=== PATIENT | female | born 1945 | race Caucasian/White ===

== ENCOUNTER → 2022-06-28 11:09 | Outpatient (BNVA) | payer MEDICARE, OTHER, SELFPAY | PROVIDERS: PCP Internal Medicine; Visit Provider Psychiatry & Neurology Psychiatry | DX: F34.1 Dysthymic disorder (principal); R41.3 Other amnesia; F10.91 Alcohol use, unspecified, in remission | CPT/HCPCS: 90833; 99212 ==

== ENCOUNTER → 2022-08-10 11:59 | Outpatient (BNVA) | payer MEDICARE, OTHER, SELFPAY | PROVIDERS: PCP Internal Medicine; Visit Provider Psychiatry & Neurology Psychiatry | DX: F10.91 Alcohol use, unspecified, in remission (principal); R41.3 Other amnesia; F34.1 Dysthymic disorder | CPT/HCPCS: 99212 ==

== ENCOUNTER → 2022-09-27 12:07 | Outpatient (BNVA) | payer MEDICARE, OTHER, SELFPAY | PROVIDERS: PCP Internal Medicine; Visit Provider Psychiatry & Neurology Psychiatry | DX: F10.91 Alcohol use, unspecified, in remission (principal); F34.1 Dysthymic disorder; R41.3 Other amnesia | CPT/HCPCS: 99212 ==

== ENCOUNTER 2023-03-12 14:13 | Outpatient (AMB) | payer MEDICARE, OTHER, SELFPAY ==
--- NOTE | 2023-03-12 14:27 | MHC.OFFVISPS ---
Intake Intake Visit Reasons: depression Medication List - Last Reconciled 03/12/23 by Jim Cerna MD atorvastatin 40 mg PO DAILY fluoxetine 20 mg PO DAILY metoprolol succinate ER 25 mg PO DAILY mirtazapine 15 mg PO BEDTIME rivaroxaban (Xarelto) 15 mg PO DAILY trazodone 50 - 100 mg (1 - 2 x 50 mg) PO BEDTIME 90 days HPI- Psychiatric Chief Complaint: depression HPI Narrative: The patient is seen in psychiatric follow-up. Patient is mood is generally okay she has periods of work problems with working attention and short-term memory. Executive functioning general function functional abilities remained generally intact. The patient complains of fatigue some depressive symptoms does remain sober along with her . Had a very difficult recent vacation with her in which there was illness. Patient feels somewhat discouraged somewhat demoralized. Had recent GI bleed while on vacation eventually needed to be hospitalized Past Psychiatric History: The patient has a long history of depression complicated by intermittent alcohol dependence with periods of sobriety Mental Status Exam Mental Status Exam Narrative: Mental Status Exam Narrative: Appearance: Casually dressed Behavior: Cooperative appropriate psychomotor: Within normal limits Speech: Normal volume and prosody Thought proccess logical and goal-directed Thought content: Future oriented no self-harming thoughts feeling more optimistic about the future Mood: anxious mild dysphoria Affect: Appropriate to mood SI:denies HI:denies VH/AH:none Delusions: None Insight/judgment: Good insight and judgment Memory/cog: slowed mentation mild st memory dyfx Assessment and Plan Assessment & Plan (1) Dysthymia: Status: Acute Code(s): F34.1 - Dysthymic disorder (2) Memory deficit: Status: Acute Code(s): R41.3 - Other amnesia (3) Alcohol use disorder in remission: Status: Acute Code(s): F10.91 - Alcohol use, unspecified, in remission Plan pt has generally been stable emotionally had gi bleed on vac required transfusion she would re-evaluate mental status when more medically stabilized B12 folate TSH previously unremarkable unsure of current hematocrit and reason for GI bleed patient had been on blood thinners fatigue and lethargy may certainly been from anemia will re-evaluate next visit Continue mirtazapine and Prozac consider cholinesterase inhibitor patient has been taking side 0 choline which was recommended previously for depression and cognitive impairment literature was reviewed and patient has been able to review material Counseling and coordination of Care Pt. Self Management counseling: Problem solving Medication management counseling: Effectiveness and Dosing range Details: I spent [37] minutes reviewing the record, seeing the patient and documenting in the medical record. Counseling provided to the patient/caregiver as outlined below. Addressed patient/caregiver concerns regarding current medication regime including effective adherence. Addressed patient/caregiver concerns regarding diagnosis and prognosis including accuracy of diagnosis, prognosis over time, impact of diagnosis. Addressed patient/caregiver concerns regarding impact of recent stressors. 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
== END 2023-03-12 14:45 | disposition home or self-care (01) ==
LOC: HO.HOP 14:13
PROVIDERS: PCP Internal Medicine; Visit Provider Psychiatry & Neurology Psychiatry
DX: F34.1 Dysthymic disorder (principal); R41.3 Other amnesia; F10.91 Alcohol use, unspecified, in remission
CPT/HCPCS: 90833; 99213

== ENCOUNTER → 2023-03-12 14:13 | Outpatient (BNVA) | payer MEDICARE, OTHER, SELFPAY | PROVIDERS: PCP Internal Medicine; Visit Provider Psychiatry & Neurology Psychiatry | DX: R41.3 Other amnesia (principal); F34.1 Dysthymic disorder; F10.91 Alcohol use, unspecified, in remission | CPT/HCPCS: 90833; 99212 ==

== ENCOUNTER 2023-06-13 14:39 | Outpatient (AMB) | payer MEDICARE, OTHER, SELFPAY ==
--- NOTE | 2023-06-13 13:56 | A.OFFPSYCH_ITS ---
Intake Intake Visit Reasons: depression Medication List - Last Reconciled 06/13/23 by Jim Cerna MD atorvastatin 40 mg PO DAILY fluoxetine 20 mg PO DAILY metoprolol succinate ER 25 mg PO DAILY mirtazapine 22.5 mg PO BEDTIME trazodone 50 - 100 mg (1 - 2 x 50 mg) PO BEDTIME 90 days HPI- Psychiatric Chief Complaint: depression HPI Narrative: Pt is a 78 yo female descirbes in depression worsening cognition but has felt dysphoric was recently severely anemic gi bleed not worked up as of now some of her slowed mentation depression fatigue may be in relationship to anemia Past Psychiatric History: The patient has a long history of depression complicated by intermittent alcohol dependence with periods of sobriety Mental Status Exam Mental Status Exam Narrative: Mental Status Exam Narrative: Appearance: Casually dressed Behavior: Cooperative appropriate psychomotor: Within normal limits Speech: Normal volume and prosody Thought proccess logical and goal-directed Thought content: Focused on difficulty with short-term memory fatigue Mood: anxious dysphoria Affect: Appropriate to mood SI:denies HI:denies VH/AH:none Delusions: None Insight/judgment: Good insight and judgment Memory/cog: slowed mentation mild st memory dyfx Assessment and Plan Assessment & Plan (1) Dysthymia: Status: Acute Code(s): F34.1 - Dysthymic disorder (2) Mild cognitive impairment with memory loss: Status: Acute Code(s): G31.84 - Mild cognitive impairment of uncertain or unknown etiology (3) Alcohol use disorder in remission: Status: Acute Code(s): F10.91 - Alcohol use, unspecified, in remission Plan The patient has been increasingly concerned about her health in mental in cognitive health. She had another recent GI bleed with hypotension had been taken off of blood thinners and had a watch min procedure because of atrial fibrillation. Patient has been increasingly blue she can maintain her normal functioning generally speaking but does find that although she can do normal tasks shopping cooking driving should she has some mild word-finding at times and has difficulty speaking up in AA meetings which is unusual for her. Valentin cognitive assessment showed a 26 discussed option to start Namenda patient just had a GI bleed was anemic will follow-up in about 6 weeks increase mirtazapine 22.5 mg for 2 weeks if no improvement 30 mg patient: Between if feeling worse. 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 Counseling provided to the patient/caregiver as outlined below. Addressed patient/caregiver concerns regarding current medication regime including effective adherence. Addressed patient/caregiver concerns regarding diagnosis and prognosis including accuracy of diagnosis, prognosis over time, impact of diagnosis. Addressed patient/caregiver concerns regarding impact of recent stressors. 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
== END 2023-06-13 14:40 | disposition home or self-care (01) ==
LOC: HO.HOP 14:39
PROVIDERS: PCP Internal Medicine; Visit Provider Psychiatry & Neurology Psychiatry
DX: F34.1 Dysthymic disorder (principal); G31.84 Mild cognitive impairment of uncertain or unknown etiology; F10.91 Alcohol use, unspecified, in remission
CPT/HCPCS: 90833; 99213

== ENCOUNTER → 2023-06-13 14:39 | Outpatient (BNVA) | payer MEDICARE, OTHER, SELFPAY | PROVIDERS: PCP Internal Medicine; Visit Provider Psychiatry & Neurology Psychiatry | DX: F34.1 Dysthymic disorder (principal); F10.91 Alcohol use, unspecified, in remission; G31.84 Mild cognitive impairment of uncertain or unknown etiology | CPT/HCPCS: 90833; 99212 ==

== ENCOUNTER 2023-07-25 15:07 | Outpatient (AMB) | payer MEDICARE, OTHER, SELFPAY ==
--- NOTE | 2023-07-25 12:15 | A.OFFPSYCH_ITS ---
Intake Intake Visit Reasons: depression HPI- Psychiatric Chief Complaint: depression HPI Narrative: Pt generally has been ok less depressed no cognitive changes they still have not figured out why the patient became in endoscopy and colonoscopy did not show any clear reason for anemia. Patient remains on side a choline Prozac mirtazapine remain sober Past Psychiatric History: The patient has a long history of depression complicated by intermittent alcohol dependence with periods of sobriety Mental Status Exam Mental Status Exam Narrative: Mental Status Exam Narrative: Appearance: Casually dressed Behavior: Cooperative appropriate psychomotor: Within normal limits Speech: Normal volume and prosody Thought proccess logical and goal-directed Thought content: Worries about cognition and medical condition Mood: anxious dysphoria Affect: Appropriate to mood SI:denies HI:denies VH/AH:none Delusions: None Insight/judgment: Good insight and judgment Memory/cog: slowed mentation mild st memory dyfx Assessment and Plan Assessment & Plan (1) Dysthymia: Status: Acute Code(s): F34.1 - Dysthymic disorder (2) Mild cognitive impairment with memory loss: Status: Acute Code(s): G31.84 - Mild cognitive impairment of uncertain or unknown etiology (3) Alcohol use disorder in remission: Status: Acute Code(s): F10.91 - Alcohol use, unspecified, in remission Plan Trazodone increased to 150 mg as needed continue mirtazapine 22.5 mg fluoxetine 20 mg daily. Consider Aricept/Namenda patient remains sober urged regular sleep Medications: Changed From trazodone 50 - 100 mg (1 - 2 x 50 mg) PO BEDTIME 90 days 180 tabs 1RF To trazodone 50 - 150 mg (1 - 3 x 50 mg) PO BEDTIME 180 tabs 1RF 90 days Refilled mirtazapine 22.5 mg (1.5 x 15 mg) PO BEDTIME 135 tabs 1RF 90 days fluoxetine 20 mg PO DAILY 90 caps 1RF Counseling and coordination of Care Pt. Self Management counseling: Cognitive restructuring Medication management counseling: Effectiveness, Side effects and Dosing range Diagnosis and Prognosis Counseling: Impact of diagnosis on life functions and Adequacy of current interventions Details: I spent [35] minutes reviewing the record, seeing the patient and documenting in the medical record. Counseling provided to the patient/caregiver as outlined below. Addressed patient/caregiver concerns regarding current medication regime including effective adherence. Addressed patient/caregiver concerns regarding diagnosis and prognosis including accuracy of diagnosis, prognosis over time, impact of diagnosis. Addressed patient/caregiver concerns regarding impact of recent stressors. 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
== END 2023-07-25 15:08 | disposition home or self-care (01) ==
LOC: HO.HOP 15:07
PROVIDERS: PCP Internal Medicine; Visit Provider Psychiatry & Neurology Psychiatry
DX: F34.1 Dysthymic disorder (principal); G31.84 Mild cognitive impairment of uncertain or unknown etiology; F10.91 Alcohol use, unspecified, in remission
CPT/HCPCS: 99214

== ENCOUNTER → 2023-07-25 15:07 | Outpatient (BNVA) | payer MEDICARE, OTHER, SELFPAY | PROVIDERS: PCP Internal Medicine; Visit Provider Psychiatry & Neurology Psychiatry | DX: F34.1 Dysthymic disorder (principal); G31.84 Mild cognitive impairment of uncertain or unknown etiology; F10.91 Alcohol use, unspecified, in remission | CPT/HCPCS: 99212 ==

== ENCOUNTER 2023-10-22 11:45 | Outpatient (AMB) | payer MEDICARE, OTHER, SELFPAY ==
--- NOTE | 2023-10-22 13:14 | A.OFFPSYCH_ITS ---
Intake Intake Visit Reasons: depression HPI- Psychiatric Chief Complaint: depression HPI Narrative: Patient seen in psychiatric follow-up. The patient had recently been hospitalized for what seems to be a syncopal episode meds at discharge Patient has been on aspirin atorvastatin vitamin-D B12 fluoxetine 20 metoprolol 25 Mirtazapine patient has been taking citocholine . History of atrial fibrillation cardiomyopathy history of alcoholism sober x2 years. Patient's mood has been melancholic no SI she does also complain shortness breath walking up stairs or walking relatively short distances. It is not clear whether this is cardiac or pulmonary. Was not thought to be a seizure See PHQ-9 patient dysphoric worried about medical issues and slowly worsening cognitive functioning. Memory impairment from what she would done the day before occasionally when driving has lost track of direction but then is able to reorient herself Past Psychiatric History: The patient has a long history of depression complicated by intermittent alcohol dependence with periods of sobriety Mental Status Exam Mental Status Exam Narrative: Mental Status Exam Narrative: Appearance: Casually dressed Behavior: Cooperative appropriate psychomotor: Within normal limits Speech: Normal volume and prosody Thought proccess logical and goal-directed Thought content: Worries about cognition and medical condition preoccupied ruminating Mood: anxious dysphoria Affect: Appropriate to mood SI:denies HI:denies VH/AH:none Delusions: None Insight/judgment: Good insight and judgment Memory/cog: slowed mentation mild st memory dyfx knows year month place day diagnoses medication Results Reviewed Results Reviewed: [facility] recent admission status post syncope Assessment and Plan Assessment & Plan (1) Mild cognitive impairment with memory loss: Status: Acute Code(s): G31.84 - Mild cognitive impairment of uncertain or unknown etiology (2) Alcohol use disorder in remission: Status: Acute Code(s): F10.91 - Alcohol use, unspecified, in remission (3) Syncope and collapse: Status: Acute Code(s): R55 - Syncope and collapse (4) Major depression, recurrent, chronic: Status: Acute Code(s): F33.9 - Major depressive disorder, recurrent, unspecified Plan Neurology referral stop trazodone in case contributing to any hypotensive episode would most likely benefit from Exelon/Namenda has been sober x2 years vascular changes noted on past MRI past [place] 22 Question would patient benefit from level of amyloid/tau protein ? leqembi treatment if alz Urged patient to speak with her PCP regarding clarification reasons for shortness breath question COPD question arrhythmia related question what was cause of recent syncope no orthostasis noted Records reviewed from [facility] Medications: Discontinued trazodone Discontinued Reason: Doctor's Order 50 - 150 mg (1 - 3 x 50 mg) PO BEDTIME 90 days 180 tabs 1RF Orders: Orders EEG ambulatory 10/22/23 G31.84 - Mild cognitive impairment of uncertain or unknown etiology, R55 - Syncope and collapse Referrals Neurology Referral G31.84 - Mild cognitive impairment of uncertain or unknown etiology, R55 - Syncope and collapse Counseling and coordination of Care Diagnosis and Prognosis Counseling: Adequacy of current interventions Details-Diagnosis/Prognosis counseling: Consider TMS after neuro workup question why has not red blood count normalized Details: I spent [38] minutes reviewing the record, seeing the patient and documenting in the medical record. Counseling provided to the patient/caregiver as outlined below. Addressed patient/caregiver concerns regarding current medication regime including effective adherence. Addressed patient/caregiver concerns regarding diagnosis and prognosis including accuracy of diagnosis, prognosis over time, impact of diagnosis. Addressed patient/caregiver concerns regarding impact of recent stressors. 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
== END 2023-10-22 18:18 | disposition home or self-care (01) ==
LOC: HO.HOP 11:45
PROVIDERS: PCP Internal Medicine; Visit Provider Psychiatry & Neurology Psychiatry
DX: G31.84 Mild cognitive impairment of uncertain or unknown etiology (principal); F10.91 Alcohol use, unspecified, in remission; R55 Syncope and collapse; F33.9 Major depressive disorder, recurrent, unspecified
CPT/HCPCS: 90833; 99213

== ENCOUNTER → 2023-10-22 11:45 | Outpatient (BNVA) | payer MEDICARE, OTHER, SELFPAY | PROVIDERS: PCP Internal Medicine; Visit Provider Psychiatry & Neurology Psychiatry | DX: G31.84 Mild cognitive impairment of uncertain or unknown etiology (principal); F10.91 Alcohol use, unspecified, in remission; F33.9 Major depressive disorder, recurrent, unspecified; R55 Syncope and collapse | CPT/HCPCS: 99212 ==

== ENCOUNTER 2023-12-31 13:45 | Outpatient (AMB) | payer MEDICARE, OTHER, SELFPAY ==
--- NOTE | 2023-12-31 13:53 | A.OFFPSYCH_ITS ---
Intake Intake Visit Reasons: Depression Medication List - Last Reconciled 12/31/23 by Jim Cerna MD atorvastatin 40 mg PO DAILY fluoxetine 20 mg PO DAILY metoprolol succinate ER 25 mg PO DAILY mirtazapine 22.5 mg (1.5 x 15 mg) PO BEDTIME 90 days HPI- Psychiatric Chief Complaint: Depression HPI Narrative: Pt feeling much improved off trazadone was causing sedation confusion during the day now alert energetic . Cognitive issues much decreased memory improved. Mood markedly improved. Remains sober. Past Psychiatric History: The patient has a long history of depression complicated by intermittent alcohol dependence with periods of sobriety Mental Status Exam Mental Status Exam Narrative: Mental Status Exam Narrative: Appearance: Casually dressed Behavior: Cooperative appropriate psychomotor: Within normal limits Speech: Normal volume and prosody Thought proccess logical and goal-directed Thought content: Much more positive in thought feeling much better less impaired Mood: Euthymic Affect: Appropriate SI:denies HI:denies VH/AH:none Delusions: None Insight/judgment: Good insight and judgment Memory/cog: Much more alert cognition much improved quicker Assessment and Plan Assessment & Plan (1) Major depression, recurrent, chronic: Status: Acute Code(s): F33.9 - Major depressive disorder, recurrent, unspecified (2) Mild cognitive impairment with memory loss: Status: Acute Code(s): G31.84 - Mild cognitive impairment of uncertain or unknown etiology (3) Alcohol use disorder in remission: Status: Acute Code(s): F10.91 - Alcohol use, unspecified, in remission Plan Continue current treatment plan off trazodone continue Prozac mirtazapine side choline L methyl folate Monitor cognition patient an upcoming neurology consult Medications: New levomefolate calcium 15 mg PO DAILY 30 tabs 0RF Refilled mirtazapine 22.5 mg (1.5 x 15 mg) PO BEDTIME 135 tabs 1RF 90 days fluoxetine 20 mg PO DAILY 90 caps 1RF Counseling and coordination of Care Details: I spent [] minutes reviewing the record, seeing the patient and documenting in the medical record. Counseling provided to the patient/caregiver as outlined below. Addressed patient/caregiver concerns regarding current medication regime including effective adherence. Addressed patient/caregiver concerns regarding diagnosis and prognosis including accuracy of diagnosis, prognosis over time, impact of diagnosis. Addressed patient/caregiver concerns regarding impact of recent stressors. 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
== END 2023-12-31 14:11 | disposition home or self-care (01) ==
LOC: HO.HOP 13:45
PROVIDERS: PCP Internal Medicine; Visit Provider Psychiatry & Neurology Psychiatry
DX: F33.9 Major depressive disorder, recurrent, unspecified (principal); G31.84 Mild cognitive impairment of uncertain or unknown etiology; F10.91 Alcohol use, unspecified, in remission
CPT/HCPCS: 99214

== ENCOUNTER → 2023-12-31 13:45 | Outpatient (BNVA) | payer MEDICARE, OTHER, SELFPAY | PROVIDERS: PCP Internal Medicine; Visit Provider Psychiatry & Neurology Psychiatry | DX: F33.9 Major depressive disorder, recurrent, unspecified (principal); G31.84 Mild cognitive impairment of uncertain or unknown etiology; F10.91 Alcohol use, unspecified, in remission; Z79.899 Other long term (current) drug therapy | CPT/HCPCS: 99212 ==

== ENCOUNTER 2024-05-26 14:31 | Outpatient (AMB) | payer MEDICARE, OTHER, SELFPAY ==
--- NOTE | 2024-05-26 14:58 | A.OFFPSYCH_ITS ---
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 Past Psychiatric History: The patient has a long history of depression complicated by intermittent alcohol dependence with periods of sobriety Mental Status Exam Mental Status Exam Narrative: Mental Status Exam Narrative: Appearance: Casually dressed Behavior: Cooperative appropriate psychomotor: Within normal limits Speech: Normal volume and prosody Thought proccess logical and goal-directed Thought content: Much more positive in thought feeling much better less impaired Mood: Euthymic Affect: Appropriate SI:denies HI:denies VH/AH:none Delusions: None Insight/judgment: Good insight and judgment Memory/cog: Much more alert cognition much improved quicker Assessment and Plan Assessment & Plan (1) Alcohol use disorder in remission: Status: Acute Code(s): F10.91 - Alcohol use, unspecified, in remission (2) Major depression, recurrent, chronic: Status: Acute Code(s): F33.9 - Major depressive disorder, recurrent, unspecified Plan Patient has done well on a combination of mirtazapine and fluoxetine no new medical problems cognitively has strongly regain much function improved over the past few months after hematocrit increased and trazodone was discontinued which may have been contributing to cloudiness Medications: Refilled fluoxetine 20 mg PO DAILY 90 caps 1RF mirtazapine 22.5 mg (1.5 x 15 mg) PO BEDTIME 135 tabs 1RF 90 days Counseling and coordination of Care Details: I spent [] minutes reviewing the record, seeing the patient and documenting in the medical record. Counseling provided to the patient/caregiver as outlined below. Addressed patient/caregiver concerns regarding current medication regime including effective adherence. Addressed patient/caregiver concerns regarding diagnosis and prognosis including accuracy of diagnosis, prognosis over time, impact of diagnosis. Addressed patient/caregiver concerns regarding impact of recent stressors. 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
== END 2024-05-26 14:35 | disposition home or self-care (01) ==
PROVIDERS: PCP Internal Medicine; Visit Provider Psychiatry & Neurology Psychiatry
DX: F10.91 Alcohol use, unspecified, in remission (principal); F33.9 Major depressive disorder, recurrent, unspecified
CPT/HCPCS: 90833; 99213

== ENCOUNTER → 2024-05-26 14:31 | Outpatient (BNVA) | payer MEDICARE, OTHER, SELFPAY | PROVIDERS: PCP Internal Medicine; Visit Provider Psychiatry & Neurology Psychiatry | DX: F10.91 Alcohol use, unspecified, in remission (principal); F33.9 Major depressive disorder, recurrent, unspecified; Z71.89 Other specified counseling | CPT/HCPCS: 99212 ==

== ENCOUNTER 2024-09-08 15:38 | Outpatient (AMB) | payer MEDICARE, OTHER, SELFPAY ==
--- NOTE | 2024-09-08 15:49 | MHC.OFFVISPS ---
Intake Intake Visit Reasons: depression Medication List - Last Reconciled 09/08/24 by Jim Cerna MD atorvastatin 40 mg PO DAILY fluoxetine 20 mg PO DAILY levomefolate calcium 15 mg PO DAILY metoprolol succinate ER 25 mg PO DAILY mirtazapine 22.5 mg (1.5 x 15 mg) PO BEDTIME 90 days pantoprazole mg PO HPI- Psychiatric Chief Complaint: depression HPI Narrative: Pt seen in f/u mood flat sober 3 1/2 yrs continues to generally be doing well. Cognitively intact. Her remains sober. Patient continues on fluoxetine mirtazapine citocholine generally doing well. Future oriented no complaints of side effects Past Psychiatric History: The patient has a long history of depression complicated by intermittent alcohol dependence with periods of sobriety Mental Status Exam Mental Status Exam Narrative: Mental Status Exam Narrative: Appearance: Casually dressed Behavior: Cooperative appropriate psychomotor: Within normal limits Speech: Normal volume and prosody Thought proccess logical and goal-directed Thought content: Much more positive in thought feeling much better less impaired Mood: Euthymic Affect: Appropriate SI:denies HI:denies VH/AH:none Delusions: None Insight/judgment: Good insight and judgment Memory/cog: Much more alert cognition much improved quicker Patient Appearance: Well Grooomed Assessment and Plan Assessment & Plan (1) Dysthymia: Status: Acute Code(s): F34.1 - Dysthymic disorder (2) Alcohol use disorder in remission: Status: Acute Code(s): F10.91 - Alcohol use, unspecified, in remission Plan Continue fluoxetine mirtazapine. Patient stable no thoughts of self-harm has been sober Medications: Refilled fluoxetine 20 mg PO DAILY 90 caps 1RF mirtazapine 22.5 mg (1.5 x 15 mg) PO BEDTIME 135 tabs 1RF 90 days Counseling and coordination of Care Diagnosis and Prognosis Counseling: Prognosis over time and Adequacy of current interventions Details: I spent [30] minutes reviewing the record, seeing the patient and documenting in the medical record. Counseling provided to the patient/caregiver as outlined below. Addressed patient/caregiver concerns regarding current medication regime including effective adherence. Addressed patient/caregiver concerns regarding diagnosis and prognosis including accuracy of diagnosis, prognosis over time, impact of diagnosis. Addressed patient/caregiver concerns regarding impact of recent stressors. 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
--- OUTSIDE RECORDS SUMMARY | 2024-09-08 16:14 | XMS_ITS | Clinical Summary ---
Author Organization [address] [place] [address] [place] [id number] Phone Care Team Providers Care Museum Technician Name Role Phone Wilfredo Estrada NP Primary Care Provider [phone] Medications pantoprazole (PROTONIX) 40 mg EC tabletIndicatio ns:GERD (gastroesophage al reflux disease) TAKE 1 TABLET BY MOUTH TWICE A DAY DIRECTED 180 tablet 1 07/21/2024 Active Encounters Date Type Department Care Team Description 09/01/2024 6:20 PM EST Ancillary Procedure [facility] [address] [facility] [address] [place] [address] 08/04/2024 3:20 PM EST Ancillary Procedure [facility] [address] [facility] [address] [place] [address] 07/15/2024 Telephone [facility] [address] [facility] [address] [place] [address] Rick Degroot MD from Last 3 Months Medical History Medical History Date Comments Family history of cardiovascular disease DX:Family history of cardiovascular disease Essential hypertension DX:Essent ial hypertension Hyperlipidemia DX:Hyperlipidemi a Alcohol abuse DX:Alcohol abuse Chronic kidney disease, stag e 3 ([facility]) DX:Chronic kidney disease, s tage 3 ([facility]) Esophagitis, reflux DX:Esophagit is, reflux Insomnia DX:Insomnia Major depression in partial remission ([facility]) DX:Major depression in parti al remission ([facility]) GI bleed DX:GI bleed Anemia DX:Anemia Depression DX:Depression Syncope DX:Syncope Dyspnea on exertion DX:Dyspnea o n exertion HTN (hypertension) DX:HTN (hyper tension) GERD (gastroesophageal reflux disease) DX:GERD (gastroesophageal reflux disease) Iron deficiency anemia DX:Iron d eficiency anemia Social History Tobacco Use Types Packs/Day Years Used Date Smoking Tobacco: Former Smokeless Tobacco: Never Alcohol Use Standard Drinks/Week Comments Not Currently 0 (1 standard drink = 0.6 oz pur e alcohol) Comments Unknown Sex and Gender Information Value Date Recorded Sex Assigned at Not on file Legal Sex Female 10:59 PM EST Gender Identity Not on file Sexual Orientation Not on file Obstetrics History Last Filed Vital Signs Vital Sign Reading Time Taken Comments Blood Pressure 138/80 12/16/2023 1:52 PM EDT Pulse 73 12/16/2023 1:52 PM EDT Temperature - - Respiratory Rate - - Oxygen Saturation - - Inhaled Oxygen Concentration - - Weight 65.8 kg (145 lb) 12/16/2023 1:52 PM EDT Height 162.6 cm (5' 4 ) 12/16/2023 1:52 PM EDT Body Mass Index 24.89 12/16/2023 1:52 PM EDT Plan of Treatment Health Maintenance Due Date Last Done Comments Pneumococcal Vaccine: 50+ Years (1 of 1 - PCV) 1995 Zoster Vaccines (2 of 2) 06/23/2018 04/28/2018 Cholesterol Screening (Lipid Panel) 07/01/2022 Depression Screening 07/01/2022 Falls Risk Assessment 07/01/2022 Hepatitis C Screening 07/01/2022 Medicare Annual Wellness Visit 07/01/2022 Osteoporosis Screening (Bone Density Screening) 07/01/2022 Social Influencers of Health Screening 07/01/2022 Hypertension/CHF/CAD Annual BMP Blood Test 07/07/2022 DTaP,Tdap,and Td Vaccines (2 - Td or Tdap) 10/01/2023 09/03/2023 COVID-19 Vaccine Completed 04/17/2024, 08/2022, 05/09/2021, Additional history exists Influenza Vaccine Completed 04/17/2024, , 05/24/2022, Additional history exists RSV Immunization Patients 60+ Years Old Completed 04/22/2024 HIB Vaccines Aged Out No longer eligi ble based on patient's age to complete this topic HPV Vaccines Aged Out No longer eligi ble based on patient's age to complete this topic Hepatitis A Vaccines Aged Out No long er eligible based on patient's age to complete this topic Hepatitis B Vaccines Aged Out No long er eligible based on patient's age to complete this topic IPV Vaccines Aged Out No longer eligi ble based on patient's age to complete this topic MMR Vaccines Aged Out No longer eligi ble based on patient's age to complete this topic Meningococcal ACWY Vaccine Aged Out N o longer eligible based on patient's age to complete this topic Meningococcal B Vacine Aged Out No lo nger eligible based on patient's age to complete this topic RSV Immunization Patients Under 20 months Aged Out No longer eligible based on patient's age to complete this topic Varicella Vaccines Aged Out No longer eligible based on patient's age to complete this topic Medical Devices Implanted Type Area Cotton Tier Device Identifier Shelf Expiration Date Model / Serial / Lot Bsci-Crm [id number] Implanted:02/2024 (Quantity not on file) Cardiac Loop Recorder [employer] CARD RHYTHM MGMT M301 / [id number] / Procedures Procedure Name Priority Date/Time Associated Diagnosis Comments CARDIAC DEVICE CHECK- REMOTE- MURJ Routine 09/01/2024 6:19 PM EST CARDIAC DEVICE CHECK- REMOTE- MURJ Routine 08/04/2024 3:16 PM EST from Last 3 Months Results * Cardiac device check - Remote- MURJ (09/01/2024 6:19 PM EST) Only the most recent of2 resultswithin the time period is included. Date Time Interrogation Session [id number] CV DEVICE CHECK Type Interrogation Session Remote Scheduled CV DEVICE CHECK Implantable Pulse Generator Cotton Tier BSX CV DEVICE CHECK Implantable Pulse Generator Type ILR CV DEVICE CHECK Implantable Pulse Generator Model M301 CV DEVICE CHECK Implantable Pulse Generator Serial Number [id number] CV DEVICE CHECK Implantable Pulse Generator Implant Date [id number] CV DEVICE CHECK Battery Status Beginning of Service CV DEVICE CHECK Date of Service 2024-09-04 CV DEVICE CHECK Anatomical Region Laterality Modality Device Interroga tion 08/24/2024 12:1 4 AM EST Impressions 09/01/2024 12:59 PM EST Normal Remote: No Events * This is a normal remote diagnostic device check * Alerts or events: None * Battery data was reviewed * Battery status: [place], [place] * Presenting rhythm: S-ECG suggestive of AF with slow ventricular response * Heart Rate Histograms reviewed Narrative Procedure Note Hoa Shearer MD - 09/01/2024 IMPRESSION: Normal Remote: No Events * This is a normal remote diagnostic device check * Alerts or events: None * Battery data was reviewed * Battery status: [place], [place] * Presenting rhythm: S-ECG suggestive of AF with slow ventricularresponse * Heart Rate Histograms reviewed us Hoa Shearer MD CV IMPLANTABLE CARDIAC DEV ICE PROCEDURES Final Result from Last 3 Months Insurance MEDICARE [facility] Advance Directives Documents on File Type Date Recorded Patient Curtain Cutter Expl [facility] Health Care Decision (hx) 09/07/2023 CALVIN SMITH DIRECTIVE Care Teams Museum Technician Relationship Specialty Start Date End Date Wilfredo Estrada NP [facility] [address] [place] [address] PCP - General 06/19/23
--- OUTSIDE RECORDS SUMMARY | 2024-09-08 16:14 | XMS_ITS | Encounter Summary ---
Author Organization [facility] Address [address] [place] [address] Care Team Providers Care Shoe Singer Name Role Phone SeanWilfredo cardenas NASIR Primary Care Provider [phone] Encounter Details Date Type Department Care Team (Late st Contact Info) Description 09/01/2024 6:20 PM EST Ancillary Procedure [facility] - [address] [facility] [address] [place] [address] Social History Tobacco Use Types Packs/Day Years Used Date Smoking Tobacco: Former Smokeless Tobacco: Never Alcohol Use Standard Drinks/Week Comments Not Currently 0 (1 standard drink = 0.6 oz pur e alcohol) Comments Unknown Sex and Gender Information Value Date Recorded Sex Assigned at Not on file Legal Sex Female 10:59 PM EST Gender Identity Not on file Sexual Orientation Not on file documented as of this encounter Plan of Treatment Not on file documented as of this encounter Procedures Procedure Name Priority Date/Time Associated Diagnosis Comments CARDIAC DEVICE CHECK- REMOTE- MURJ Routine 09/01/2024 6:19 PM EST documented in this encounter Results * Cardiac device check - Remote- MURJ (09/01/2024 6:19 PM EST) Date Time Interrogation Session [id number] CV DEVICE CHECK Type Interrogation Session Remote Scheduled CV DEVICE CHECK Implantable Pulse Generator Dental Resident BSX CV DEVICE CHECK Implantable Pulse Generator Type ILR CV DEVICE CHECK Implantable Pulse Generator Model M301 CV DEVICE CHECK Implantable Pulse Generator Serial Number [id number] CV DEVICE CHECK Implantable Pulse Generator Implant Date [id number] CV DEVICE CHECK Battery Status Beginning of [...] slow ventricularresponse * Heart Rate Histograms reviewed Hoa Shearer MD CV IMPLANTABLE CARDIAC DEV ICE PROCEDURES Final Result documented in this encounter Visit Diagnoses Not on filedocumented in this encounter Care Teams Shoe Singer Relationship Specialty Start Date End Date Wilfredo Estrada NP [facility] [address] [place] [address] PCP - General 06/19/23 documented as of this encounter
== END 2024-09-08 16:04 | disposition home or self-care (01) ==
LOC: HO.HOP 15:38
PROVIDERS: PCP Internal Medicine; Visit Provider Psychiatry & Neurology Psychiatry
DX: F34.1 Dysthymic disorder (principal); F10.91 Alcohol use, unspecified, in remission
CPT/HCPCS: 99214

== ENCOUNTER → 2024-09-08 15:38 | Outpatient (BNVA) | payer MEDICARE, OTHER, SELFPAY | PROVIDERS: PCP Internal Medicine; Visit Provider Psychiatry & Neurology Psychiatry | DX: F34.1 Dysthymic disorder (principal); F10.91 Alcohol use, unspecified, in remission | CPT/HCPCS: 99212 ==

== ENCOUNTER 2025-03-11 13:15 | Outpatient (AMB) | payer MEDICARE, OTHER, SELFPAY ==
--- NOTE | 2025-03-11 11:44 | MHC.OFFVISPS ---
Intake Intake Visit Reasons: depression Allergies amlodipine (From [facility]) Adverse Reaction (Verified 03/11/25 11:42) Swelling trazodone (From [facility]) Adverse Reaction (Verified 03/11/25 11:44) Confusion Medication List - Last Reconciled 03/11/25 by Jim Cerna MD atorvastatin 40 mg PO DAILY fluoxetine 20 mg PO DAILY levomefolate calcium 15 mg PO DAILY metoprolol succinate ER 25 mg PO DAILY mirtazapine 22.5 mg (1.5 x 15 mg) PO BEDTIME 90 days pantoprazole mg PO HPI- Psychiatric Chief Complaint: depression HPI Narrative: Pt seen in f/u mood chapa generally doing okay somewhat situationally down in relationship been somewhat down has felt estranged from son and has been dealing with chronic pain bursitis. Taking 15 l methyl folate taking citocholine was taken by surprise with issues related to her son who had been living with her previously.. Patient remains sober Past Psychiatric History: The patient has a long history of depression complicated by intermittent alcohol dependence with periods of sobriety Mental Status Exam Mental Status Exam Narrative: Mental Status Exam Narrative: Appearance: Casually dressed Behavior: Cooperative appropriate psychomotor: Within normal limits Speech: Normal volume and prosody Thought proccess logical and goal-directed Thought content: Somewhat preoccupied with issues related to her son and chronic dealing with chronic pain Mood: Depressive ruminating Affect: Appropriate to mood constricted SI:denies HI:denies VH/AH:none Delusions: None Insight/judgment: Good insight and judgment Memory/cog: Much more alert cognition intact Patient Appearance: Well Grooomed Assessment and Plan Assessment & Plan (1) Dysthymia: Status: Acute Code(s): F34.1 - Dysthymic disorder Plan Continue mirtazapine and fluoxetine. Discussed possibility of regular psychotherapy patient felt she can manage current situation and feels supported by friends and family Medications: Refilled mirtazapine 22.5 mg (1.5 x 15 mg) PO BEDTIME 135 tabs 1RF 90 days fluoxetine 20 mg PO DAILY 90 caps 1RF Counseling and coordination of Care Details-Self Mgmt counseling: Issues related to current family discord and internal will upset Medication management counseling: Effectiveness and Side effects Diagnosis and Prognosis Counseling: Adequacy of current interventions Details: I spent [39] minutes reviewing the record, seeing the patient and documenting in the medical record. Counseling provided to the patient/caregiver as outlined below. Addressed patient/caregiver concerns regarding current medication regime including effective adherence. Addressed patient/caregiver concerns regarding diagnosis and prognosis including accuracy of diagnosis, prognosis over time, impact of diagnosis. Addressed patient/caregiver concerns regarding impact of recent stressors. 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
--- OUTSIDE RECORDS SUMMARY | 2025-03-11 14:08 | XMS_ITS | Clinical Summary ---
Author Organization [address] [place] [address] [place] [phone] Phone Care Team Providers Care Lathe Operator Contact Lens Name Role Phone Wilfredo Estrada NP Primary Care Provider [phone] Allergies Active Allergy Reactions Criticality Noted Date Comments Duloxetine Rash 02/10/2025 Trazodone 02/10/2025 Passed out Medications furosemide (LASIX) 20 mg tablet Take 1 tablet (20 mg total) by mouth 1 (one) time each day. 30 each 2 01/16/20 25 Active Additional Information Patient taking differently:20 mg oralAs needed, Reported on 02/10/2025 atorvastatin (LIPITOR) 40 mg tablet Take 1 tablet (40 mg total) by mouth at bedtime. Active mirtazapine (REMERON) 15 mg tablet Take 1.5 tablets (22.5 mg total) by mouth at bedtime. Active aspirin 81 mg EC tablet Take 1 tablet (81 mg total) by mouth 1 (one) time each day. 02/11/20 25 026 Active FLUoxetine (PROzac) 20 mg capsule Take 1 capsule (20 mg total) by mouth 1 (one) time each day. Active metoprolol succinate (TOPROL-XL) 25 mg 24 hr tablet TAKE 0.5 TABLETS BY MOUTH 1 TIME EACH DAY. 45 tablet 1 02/16/20 25 Active pantoprazole (PROTONIX) 40 mg EC tabletIndicat ions:GERD (gastroesopha geal reflux disease) Take 1 tablet (40 mg total) by mouth 2 (two) times a day. as directed 180 tablet 02/16/20 25 Active pantoprazole (PROTONIX) 40 mg EC tabletIndicat ions:GERD (gastroesopha geal reflux disease) TAKE 1 TABLET BY MOUTH TWICE A DAY DIRECTED 180 tablet 1 07/21/20 24 025 Discontinued(Re order) metoprolol succinate (TOPROL-XL) 25 mg 24 hr tablet Take 0.5 tablets (12.5 mg total) by mouth 1 (one) time each day. 45 tablet 11/21/19 25 025 Discontinued Active Problems Problem Noted Date Diagnosed Date Alcohol abuse, in remission 01/06/2025 Chronic kidney disease 01/06/2025 Chronic atrial fibrillation (CMS/HCC V24, CMS/HC C V28) 12/25/2024 Assessment & Plan (02/10/2025 12:13 PM EDT): Patient has history of atrial fibrillation status post Watchman procedure. She is not on any anticoagulation at this point and remains on just aspirin. She does not present with any clinical symptoms of heart failure and she appears euvolemic on physical examination. After recent hip surgery she did require furosemide for several days. Her leg edema has completely resolved and she is using furosemide only as needed for her leg swelling. Presence of Watchman left atrial appendage closu re device 06/03/2023 Assessment & Plan (02/10/2025 12:13 PM EDT): Status post watchman left atrial appendage closure device. Continue aspirin 81 mg daily. Aortic stenosis 11/14/2022 Assessment & Plan (02/10/2025 12:13 PM EDT): Last echocardiogram did not reveal any significant aortic stenosis. HLD (hyperlipidemia) 11/14/2022 Overview (02/10/2025): Last Assessment & Plan: Last lipid profile 1 year ago revealed a total cholesterol 190. Triglycerides 78, HDL 96 and LDL of 78. She will continue on her current dose of Lipitor 40 mg. Educated on the importance of continuing with diet and lifestyle modification to help further lower cholesterol levels. She was encouraged to follow a low-fat diet. Assessment & Plan (02/10/2025 12:13 PM EDT): Patient continues on atorvastatin 40 mg once a day. LDL cholesterol goal is less than 70. Mitral regurgitation 11/14/2022 Assessment & Plan (02/10/2025 12:13 PM EDT): Patient has known severe mitral annular calcification with no significant mitral stenosis however she does have mild to moderate mitral regurgitation. Will update echocardiogram to reevaluate this. Continue with furosemide as needed for leg edema and weight gain. Hypertrophic obstructive car diomyopathy ([facility] V24, [facility] V28) 11/14/2022 Assessment & Plan (02/10/2025 12:13 PM EDT): Patient is a history of hypertrophic cardiomyopathy without obstruction. She is doing well on her present medical therapies and denies any clinical symptoms of heart failure. She is on low-dose metoprolol 12.5 mg once a day. Will update an echocardiogram. I've asked the patient to call if they develop worsening symptoms of heart failure such as increased shortness of breath, new or worsening cough, increased swelling in the legs or ankles, or weight gain of more than 2 pounds in one day or 4 pounds in one week. Essential hypertension 12/02/2020 Assessment & Plan (02/10/2025 12:13 PM EDT): Blood pressure is well-controlled with a reading today of 110/76. Continue with metoprolol 12.5 mg daily. Cerebrovascular accident (CVA) ([facility] V24, [facility] V28) 10/21/2015 Resolved Problems Problem Noted Date Diagnosed Date Resolved Date Cardiomyopathy ([facility] V24, [facility] V28) 01/06/2025 02/10/2025 Encounters Date Type Department Care Team Description 02/24/2025 7:30 PM EDT Ancillary Procedure [facility] [address] [place] [address] 02/15/2025 Telephone Gastroenterology - [address] [place] [phone] Gely Alvarez PA Med Refill 02/11/2025 Telephone [facility] [address] [place] [phone] Carmen Linda NP Results 02/10/2025 8:40 AM EDT Office Visit [facility] [address] [place] [phone] Carmen Linda NP Chronic atrial fibrillation (CMS/HCC V24, CMS/HCC V28) (Primary Dx); Aortic valve stenosis, etiology of cardiac valve disease unspecified; Hypertrophic obstructive cardiomyopathy (CMS/HCC V24, CMS/HCC V28); Mitral valve insufficiency, unspecified etiology; Presence of Watchman left atrial appendage closure device; Essential hypertension; Mixed hyperlipidemia 02/01/2025 5:50 AM EDT Ancillary Procedure [facility] [address] [place] [address] 01/14/2025 Telephone [facility] [address] [place] [phone] Carmen Linda NP Leg Swelling 01/12/2025 Lab Requisition [facility] - Main Lab [address] [facility] [place] [phone] Ignacio Oropeza MD Other fatigue; Weakness 01/07/2025 Lab Requisition [facility] - [facility] Lab [address] [facility] [place] [phone] Ignacio Oropeza MD Unspecified atrial fibrillation (CMS/HCC V24, CMS/HCC V28); Anemia, unspecified; Essential (primary) hypertension; Major depressive disorder, single episode, unspecified; Osteoarthritis of first carpometacarpal joint, unspecified 12/29/[address] [facility] [address] [place] [address] Wilfredo Estrada NP Medical REcords 12/25/2024 2:10 PM EDT Consult [facility] [address] [place] [address] Ale Rodriguez NP Chronic atrial fibrillation ([facility] V24, [facility] V28) (Primary Dx); Aortic valve stenosis, etiology of cardiac valve disease unspecified 12/17/2024 Telephone [facility] [address] [place] [address] Carmen Linda NP Pre-op Visit 12/16/2024 10:20 PM EDT Ancillary Procedure [facility] [address] [place] [address] from Last 3 Months Medical History Medical History Date Comments Family history of cardiovascular disease DX:Family history of cardiovascular disease Essential hypertension DX:Essent ial hypertension Hyperlipidemia DX:Hyperlipidemi a Alcohol abuse DX:Alcohol abuse Chronic kidney disease, stag e 3 ([facility] V24, [facility] V28) DX:Chronic kidney disease, s tage 3 ([facility]) Esophagitis, reflux DX:Esophagit is, reflux Insomnia DX:Insomnia Major depression in partial remission ([facility] V24) DX:Major depression in parti al remission ([facility]) GI bleed DX:GI bleed Anemia DX:Anemia Depression DX:Depression Syncope DX:Syncope Dyspnea on exertion DX:Dyspnea o n exertion HTN (hypertension) DX:HTN (hyper tension) GERD (gastroesophageal reflux disease) DX:GERD (gastroesophageal reflux disease) Iron deficiency anemia DX:Iron d eficiency anemia Social History Tobacco Use Types Packs/Day Years Used Date Smoking Tobacco: Former Cigarettes Smokeless Tobacco: Never Tobacco Cessation:Counseling Given: Not Answered Alcohol Use Standard Drinks/Week Comments Not Currently 0 (1 standard drink = 0.6 oz pur e alcohol) sober for 4 years- 2024 Comments Unknown Sex and Gender Information Value Date Recorded Sex Assigned at Not on file Legal Sex Female 10:59 PM EST Gender Identity Not on file Sexual Orientation Not on file Obstetrics History Last Filed Vital Signs Vital Sign Reading Time Taken Comments Blood Pressure 110/76 02/10/2025 8:47 AM EDT Pulse 75 02/10/2025 8:47 AM EDT Temperature - - Respiratory Rate - - Oxygen Saturation 98% 02/10/2025 8:47 AM EDT Inhaled Oxygen Concentration - - Weight 67.1 kg (148 lb) 02/10/2025 8:47 AM EDT Height 162.6 cm (5' 4 ) 02/10/2025 8:47 AM EDT Body Mass Index 25.4 02/10/2025 8:47 AM EDT Plan of Treatment Upcoming Encounters Date Type Department Care Team (Late st Contact Info) Description 03/15/2025 1:30 PM EDT Ancillary Procedure [facility] [address] [place] [address] 04/15/2025 1:20 PM EDT Office Visit Gastroenterology - [address] [facility] [address] [place] [address] Gely Alvarez PA [address] [place] [address] 05/28/2025 11:30 AM EDT Office Visit [facility] [address] [place] [address] Carmen Linda NP [address] [place] [address] [place] [address] Health Maintenance Due Date Last Done Comments Hepatitis A Vaccines (1 of 2 - Risk 2-dose series) 1964 Pneumococcal Vaccine: 50+ Years (1 of 2 - PCV) 1964 Zoster Vaccines (2 of 2) 06/23/2018 04/28/2018 Cholesterol Screening (Lipid Panel) 07/01/2022 Falls Risk Assessment 07/01/2022 Hepatitis C Screening 07/01/2022 Medicare Annual Wellness Visit 07/01/2022 Osteoporosis Screening (Bone Density Screening) 07/01/2022 Social Influencers of Health Screening 07/01/2022 Depression Screening 07/29/2024 COVID-19 Vaccine (7 - Pfizer risk season) 2024 04/17/2024, 05/30/2023, 12/06/2021, Additional history exists Influenza Vaccine (#1) 2025 , 05/30/2023, 05/24/2022, Additional history exists Hypertension/CHF/CAD Annual BMP Blood Test 02/10/2026 02/10/2025, 01/21/2025, 01/12/2025, Additional history exists DTaP,Tdap,and Td Vaccines (2 - Td or Tdap) 09/03/2033 09/03/2023 RSV Immunization Adult Patients Completed 04/22/2024 HIB Vaccines Aged Out No [...] age to complete this topic Meningococcal B Vaccine Aged Out No l onger eligible based on patient's age to complete this topic RSV Immunization Patients Under 20 months Aged Out No longer eligible based on patient's age to complete this topic Varicella Vaccines Aged Out No longer eligible based on patient's age to complete this topic Medical Devices Implanted Type Area [employer] Device Identifier Shelf Expiration Date Model / Serial / Lot Bsci-Crm [id number] Implanted:02/2024 (Quantity not on file) Cardiac Loop Recorder Devario CARD RHYTHM MGMT [id number] / [id number] / Procedures Procedure Name Priority Date/Time Associated Diagnosis Comments CARDIAC DEVICE CHECK- REMOTE- MURJ Routine 02/24/2025 7:27 PM EDT N-TERMINAL PROBNP Routine 02/10/2025 9:5 4 AM EDT Chronic atrial fibrillation (CMS/HCC V24, CMS/HCC V28) THYROID STIMULATING HORMONE WITH REFLEX FREE T4 Routine 02/10/2025 9:54 AM EDT Chronic atrial fibrillation (CMS/HCC V24, CMS/HCC V28) MAGNESIUM Routine 02/10/2025 9:54 AM EDT Chronic atrial fibrillation (CMS/HCC V24, CMS/HCC V28) COMPREHENSIVE METABOLIC PANEL Routine 02/10/2025 9:54 AM EDT Chronic atrial fibrillation (CMS/HCC V24, CMS/HCC V28) CARDIAC DEVICE CHECK- REMOTE- MURJ Routine 02/01/2025 5:48 AM EDT BASIC METABOLIC PANEL Routine 01/21/2025 2:45 PM EDT Localized edema BASIC METABOLIC PANEL Routine 01/12/2025 6:48 AM EDT Other fatigue Weakness COMPLETE BLOOD COUNT Routine 01/12/2025 6:48 AM EDT Other fatigue Weakness COMPREHENSIVE METABOLIC PANEL Routine 01/08/2025 6:37 AM EDT Unspecified atrial fibrillation (CMS/HCC V24, CMS/HCC V28) Anemia, unspecified Essential (primary) hypertension Major depressive disorder, single episode, unspecified Osteoarthritis of first carpometacarpal joint, unspecified COMPLETE BLOOD COUNT Routine 01/08/2025 6:37 AM EDT Unspecified atrial fibrillation (CMS/HCC V24, CMS/HCC V28) Anemia, unspecified Essential (primary) hypertension Major depressive disorder, single episode, unspecified Osteoarthritis of first carpometacarpal joint, unspecified ECG 12-LEAD Routine 12/26/2024 8:32 AM EDT Chronic atrial fibrillation (CMS/HCC V24, CMS/HCC V28) CARDIAC DEVICE CHECK- REMOTE- MURJ Routine 12/16/2024 10:15 PM EDT from Last 3 Months Results * Cardiac device check - Remote- MURJ (02/24/2025 7:27 PM EDT) Only the most recent of3 resultswithin the time period is included. Date Time Interrogation Session [id number] CV DEVICE CHECK Type Interrogation Session Remote Scheduled CV DEVICE CHECK Implantable Pulse Generator [employer] BSX CV DEVICE CHECK Implantable Pulse Generator Type ILR CV DEVICE CHECK Implantable Pulse Generator Model M301 CV DEVICE CHECK Implantable Pulse Generator Serial Number [id number] CV DEVICE CHECK Implantable Pulse Generator Implant Date [id number] CV DEVICE CHECK Battery Status Beginning of Service CV DEVICE CHECK Date of Service 2025-03-04 CV DEVICE CHECK Anatomical Region Laterality Modality Device Interroga tion 02/11/2025 12:5 4 AM EDT Impressions 02/24/2025 4:15 PM EDT Normal Remote: No Events * This is a normal remote diagnostic device check * Alerts or events: None * Battery data was reviewed * Battery status: ZOHREH, * Presenting rhythm reviewed * Heart Rate Histograms reviewed Narrative Procedure Note Hoa Shearer MD - 02/24/2025 IMPRESSION: Normal Remote: No Events * This is a normal remote diagnostic device check * Alerts or events: None * Battery data was reviewed * Battery status: ZOHREH, * Presenting rhythm reviewed * Heart Rate Histograms reviewed us Hoa Shearer MD CV IMPLANTABLE CARDIAC DEV ICE PROCEDURES Final Result * Thyroid stimulating hormone with reflex free T4 (02/10/2025 9:54 AM EDT) Thyroid Stimulating Hormone (TSH) 2.900 0.450 - 4.500 uIU/mL [facility] 1 Blood Venous blood specimen / Unknown 02/10/2025 9:54 AM EDT 02/10/2025 Narrative [facility] 1 - 02/11/2025 4:06 AM EDT Performed at: 01 - [facility] [address] [id number] Quality Review Specialist: Carmencita Perry MD, Phone: [phone] us Carmen Linda RADIATION THERAPY TECHNOLOGIST LAB BLOOD ORDERABLES Final R esult [facility] 1 * (ABNORMAL) N-Terminal Probnp (02/10/2025 9:54 AM EDT) NT-proBNP 6,807(H) 0 - 738 pg/mL [facility] 1 Comment: The following cut-points have been suggested for the use of proBNP for the diagnostic evaluation of heart failure (HF) in patients with acute dyspnea: Modality Age Optimal Cut (years) Point Diagnosis (rule in HF) <50 450 pg/mL 50 - 75 900 pg/mL >75 1800 pg/mL Exclusion (rule out HF) Age independent 300 pg/mL Blood Venous blood specimen / Unknown 02/10/2025 9:54 AM EDT 02/10/2025 Narrative [facility] 1 - 02/11/2025 8:07 AM EDT Performed at: [address] [id number] Quality Review Specialist: Carmencita Perry MD, Phone: [phone] Carmen Linda RADIATION THERAPY TECHNOLOGIST LAB BLOOD ORDERABLES Final R esult Performing Organization Address [facility] de Phone Number [facility] 1 * Magnesium (02/10/2025 9:54 AM EDT) Pathologist [facility] Magnesium 2.1 1.6 - 2.3 mg/dL [facility] 1 Blood Venous blood specimen / Unknown 02/10/2025 9:54 AM EDT 02/10/2025 Narrative [facility] 1 - 02/11/2025 8:07 AM EDT Performed at: [address] [id number] Quality Review Specialist: Carmencita Perry MD, Phone: [phone] Carmen Bartoltk RADIATION THERAPY TECHNOLOGIST LAB BLOOD ORDERABLES Final R esult Performing Organization Address [facility]/ZIP Co de Phone Number [facility] 1 * (ABNORMAL) Comprehensive metabolic panel (02/10/2025 9:54 AM EDT) Only the most recent of2 resultswithin the time period is included. Glucose 96 70 - 99 mg/dL [facility] 1 Blood Urea Nitrogen (BUN) 23 8 - 27 mg/dL [facility] 1 Creatinine 1.64(H) 0.57 - 1.00 mg/dL [facility] 1 eGFR 32(L) >59 mL/min/1. 73 [facility] 1 BUN/Creatinine Ratio 14 12 - 28 [facility] 1 Sodium 142 134 - 144 mmol/L [facility] 1 Potassium 4.7 3.5 - 5.2 mmol/L [facility] 1 Chloride 106 96 - 106 mmol/L [facility] 1 Carbon Dioxide 19(L) 20 - 29 mmol/L [facility] 1 Calcium 9.4 8.7 - 10.3 mg/dL [facility] 1 Protein Total 6.1 6.0 - 8.5 g/dL [facility] 1 Albumin 3.9 3.8 - 4.8 g/dL [facility] 1 Globulin Total 2.2 1.5 - 4.5 g/dL [facility] 1 Bilirubin Total 0.3 0.0 - 1.2 mg/dL [facility] 1 Alkaline Phosphatase 113 44 - 121 IU/L [facility] 1 Aspartate aminotransferase (AST) 26 0 - 40 IU/L [facility] 1 Alanine Aminotransferase (ALT) 13 0 - 32 IU/L [facility] 1 Blood Venous blood specimen / Unknown 02/10/2025 9:54 AM EDT 02/10/2025 Narrative [facility] 1 - 02/11/2025 4:06 AM EDT Performed at: 01 - [facility] [id number] Quality Review Specialist: Carmnecita Perry MD, Phone: [phone] us Carmen Linda RADIATION THERAPY TECHNOLOGIST LAB BLOOD ORDERABLES Final R esult [facility] * (ABNORMAL) Basic metabolic panel (01/21/2025 2:45 PM EDT) Only the most recent of2 resultswithin the time period is included. Pathologist [facility] Glucose 73 70 - 99 mg/dL [facility] 1 Blood Urea Nitrogen (BUN) 15 8 - 27 mg/dL [facility] 1 Creatinine 1.27(H) 0.57 - 1.00 mg/dL [facility] 1 eGFR 43(L) >59 mL/min/1.7 3 [facility] 1 BUN/Creatinine Ratio 12 12 - 28 [facility] 1 Sodium 137 134 - 144 mmol/L [facility] 1 Potassium 4.2 3.5 - 5.2 mmol/L [facility] 1 Chloride 100 96 - 106 mmol/L [facility] 1 Carbon Dioxide 20 20 - 29 mmol/L [facility] 1 Calcium 8.9 8.7 - 10.3 mg/dL [facility] 1 Blood Venous blood specimen / Unknown 01/21/2025 2:45 PM EDT 01/21/2025 Narrative [facility] 1 - 01/22/2025 7:06 AM EDT Performed at: [facility] [address] [id number] Quality Review Specialist: Carmencita Perry MD, Phone: [phone] us Carmen Linda RADIATION THERAPY TECHNOLOGIST LAB BLOOD ORDERABLES Final R esult [facility] * (ABNORMAL) Complete blood count (01/12/2025 6:48 AM EDT) Only the most recent of2 resultswithin the time period is included. [facility] WBC 6.3 4.8 - 10.8 K/mcL LAB HEMETOLOGY METHOD 01/12/2025 11:18 AM EDT [facility] RBC 3.40(L) 3.80 - 4.80 M/mcL LAB HEMETOLOGY METHOD 01/12/2025 11:18 AM EDT [facility] Hemoglobin 10.7(L) 11.5 - 16.0 g/dL LAB HEMETOLOGY METHOD 01/12/2025 11:18 AM EDT [facility] Hematocrit 34.4(L) 35.0 - 47.0 % LAB HEMETOLOGY METHOD 01/12/2025 11:18 AM EDT [facility] MCV 101.8(H) 79.0 - 98.0 FL LAB HEMETOLOGY METHOD 01/12/2025 11:18 AM EDT [facility] MCH 31.7 27.0 - 32.0 pcg LAB HEMETOLOGY METHOD 01/12/2025 11:18 AM EDT [facility] MCHC 31.1(L) 32.0 - 37.0 g/dL LAB HEMETOLOGY METHOD 01/12/2025 11:18 AM EDT [facility] RDW 13.8 11.0 - 15.0 % LAB HEMETOLOGY METHOD 01/12/2025 11:18 AM EDT [facility] Platelets 377 130 - 400 K/mcL LAB HEMETOLOGY METHOD 01/12/2025 11:18 AM EDT [facility] MPV 8.6 7.0 - 11.0 FL LAB HEMETOLOGY METHOD 01/12/2025 11:18 AM T [facility] NRBC 0.0 <1.0 % LAB HEMETOLOGY METHOD 01/12/2025 11:18 AM T [facility] NRBC Absolute 0.00 <0.10 K/mcL LAB HEMETOLOGY METHOD 01/12/2025 11:18 AM T [facility] Blood Venous blood specimen / Unknown Venipuncture / Unknown 01/12/2025 6:48 AM EDT 01/12/2025 10:39 AM EDT us Ignacio Oropeza MD LAB BLOOD ORDERABLES Final Resul t [facility] [address] [place] [address], * ECG 12 lead (12/26/2024 8:32 AM EDT) Ventricular Rate ECG 57 BPM GEMUSE Atrial Rate 326 BPM GEMUSE QRS Duration 110 ms GEMUSE Q-T Interval 460 ms GEMUSE QTc 447 ms GEMUSE R [place] 55 degrees GEMUSE T [place] -46 degrees GEMUSE ECG Interpretation Atrial flutter with variable A-V block T wave abnormality, consider lateral ischemia Abnormal ECG When compared with ECG of 04-SEP-2023 21:27, Atrial flutter has replaced Atrial fibrillation Incomplete left bundle branch block is no longer Present Confirmed by Sapphire LIGHT JAMES ([id number]) on 01/03/2025 2:37:00 PM GEMUSE 12/25/2024 2:23 PM EDT 01/03/2025 2:37 PM EDT us Ale Rodriguez NP ECG ORDERABLES Edited Result - Final GEMUSE from Last 3 Months Insurance MEDICARE [facility] Advance Directives Documents on File Type Date Recorded Patient Quality Measurement Specialist Expl anation Health Care Decision (hx) 09/07/2023 AD SMITH DIRECTIVE Care Teams Lathe Operator Contact Lens Relationship Specialty Start Date End Date Wilfredo Estrada NP [facility] [address] [place] [address] PCP - General 06/19/23
== END 2025-03-11 13:17 | disposition home or self-care (01) ==
LOC: HO.HOP 13:15
PROVIDERS: PCP Internal Medicine; Visit Provider Psychiatry & Neurology Psychiatry
DX: F34.1 Dysthymic disorder (principal)
CPT/HCPCS: 90833; 99213

== ENCOUNTER → 2025-03-11 13:15 | Outpatient (BNVA) | payer MEDICARE, OTHER, SELFPAY | PROVIDERS: PCP Internal Medicine; Visit Provider Psychiatry & Neurology Psychiatry | DX: F34.1 Dysthymic disorder (principal) | CPT/HCPCS: 99212 ==